=== PATIENT | female | born 1995 | race Two or more races ===

== ENCOUNTER 2023-08-02 00:05 | Inpatient (IN) | payer MEDICAID ==
[2023-08-02] MEDS ORDERED: Lidocaine 1% 50 ML MDV INJECT PRN (19:05)
[2023-08-02] MEDS ORDERED: Nalbuphine HCl 10 MG/ 1ML Amp IVPUSH PRN (19:05)
[2023-08-02] MEDS ORDERED: Ondansetron 4 MG/2 ML SDV IVPUSH PRN (19:05)
[2023-08-02] MEDS ORDERED: Misoprostol 25 MCG (1/4 of 100 MCG) Tab VAG ONE (19:12)
[2023-08-02] MEDS ORDERED: Oxytocin/Lactated Ringers 10 UNIT/1,000 ML BAG IV SCH ×2 (19:15)
[2023-08-02 19:40] LABS: BASOPHILS PERCENT AUTO 0.3 % (0.0-1.0); EOSINOPHILS PERCENT AUTO 0.3 % (0.0-6.0); HEMATOCRIT 34.9 % (37.0-47.0); HEMOGLOBIN 11.6 gm/dl (12.0-16.0); IMMATURE GRAN ABSOLUTE AUTO 0.03 K/mm3 (0.00-0.05); IMMATURE GRAN PERCENT AUTO 0.3 % (0.0-0.4); LYMPHOCYTES ABSOLUTE AUTO 2.1 K/mm3 (1.0-4.8); MEAN CORPUSCULAR HEMOGLOBIN 28.6 pg (28.0-32.0); MEAN CORPUSCULAR HGB CONC 33.2 g/dl (32.0-36.0); MEAN CORPUSCULAR VOLUME 86.2 fl (83.0-99.0); MEAN PLATELET VOLUME 10.3 fl (9.4-12.3); MONOCYTES ABSOLUTE AUTO 0.8 K/mm3 (0.0-0.8); MONOCYTES PERCENT AUTO 6.7 % (0.0-8.0); NEUTROPHILS ABSOLUTE AUTO 8.5 K/mm3 (1.8-7.7); NEUTROPHILS PERCENT AUTO 74.4 % (41.0-71.0); PLATELET COUNT,PLT 253 K/mm3 (150-400); RED BLOOD CELL COUNT 4.05 M/mm3 (4.10-5.30); WHITE BLOOD CELL COUNT,WBC 11.42 K/mm3 (3.9-11.3)
[2023-08-02] MEDS ORDERED: Misoprostol 25 MCG (1/4 of 100 MCG) Tab PO PRN (20:21)
[2023-08-02] MEDS: Lactated Ringers 1,000 ML IV SCH ×2 (22:36→23:39)
[2023-08-03] MEDS ORDERED: Metoclopramide 10 MG/2 ML SDV ONE
[2023-08-03] MEDS ORDERED: Ampicillin 2 GM in Sodium Chloride 0.9% 100 ML IV ONE ×2
[2023-08-03] MEDS ORDERED: Citric Acid/Sodium Citrate Solution 30 ML Cup ONE
[2023-08-03] MEDS ORDERED: Azithromycin 500 MG Vial ONE (00:01)
[2023-08-03] MEDS ORDERED: Sodium Chloride 0.9% 250 ML ONE (00:03)
[2023-08-03] MEDS ORDERED: Azithromycin 500 MG in Sodium Chloride 0.9% 250 ML IV ONE (00:10)
[2023-08-03] MEDS ORDERED: ceFAZolin 2 GM in Sodium Chloride 0.9% 50 ML IV ONE (00:10)
[2023-08-03] MEDS ORDERED: Bupivacaine 0.5% 30 ML SDV ONE (00:18)
[2023-08-03] MEDS ORDERED: diphenhydrAMINE 50 MG/ML SDV IVPUSH PRN (01:08)
[2023-08-03] MEDS ORDERED: Ondansetron 4 MG/2 ML SDV IVPUSH PRN (01:08)
[2023-08-03] MEDS ORDERED: Meperidine 50 MG/ML Vial IVPUSH PRN (01:08)
[2023-08-03] MEDS ORDERED: fentaNYL 100 MCG/2 ML SDV IVPUSH PRN (01:08)
[2023-08-03] MEDS ORDERED: Acetaminophen/oxyCODONE 325-5 MG Tab PO PRN (01:15)
[2023-08-03] MEDS ORDERED: Dextrose 5%-Lactated Ringers 1,000 ML IV SCH (01:15)
[2023-08-03] MEDS ORDERED: Citric Acid/Sodium Citrate Solution 30 ML Cup PO ONE (02:30)
[2023-08-03] MEDS ORDERED: Lactated Ringers 1,000 ML IV SCH (02:30)
[2023-08-03] MEDS ORDERED: Sodium Chloride 0.9% 10 ML Syringe FLUSH PRN (02:30)
[2023-08-03] MEDS ORDERED: Metoclopramide 10 MG/2 ML SDV IVPUSH ONE (02:30)
[2023-08-03] MEDS ORDERED: Ampicillin 1 GM in Sodium Chloride 0.9% 100 ML IV SCH (04:00)
[2023-08-03] MEDS: Ketorolac 30 MG/ML SDV IVPUSH PRN ×2 (08:12→15:45)
[2023-08-03] MEDS ORDERED: Sodium Chloride 0.9% 10 ML Syringe FLUSH SCH (09:00)
[2023-08-04] MEDS ORDERED: Ondansetron 4 MG/2 ML SDV ONE (00:30)
[2023-08-04] MEDS ORDERED: Meperidine 50 MG/ML Vial ONE (00:30)
[2023-08-04] MEDS ORDERED: ceFAZolin 2 GM Vial ONE (00:30)
[2023-08-04] MEDS ORDERED: Phenylephrine 1% 10 MG/ML SDV ONE (00:30)
[2023-08-04] MEDS ORDERED: Oxytocin 10 Units/1 ML SDV ONE (00:30)
== END 2023-08-05 10:55 | disposition home or self-care (01) | DRG 788 ==
LOC: JD.OB 00:05 → OBSVTOIN 08-03 00:05 → JD.OB 08-03 00:44
PROVIDERS: ADMIT Obstetrics & Gynecology; ATTEND Obstetrics & Gynecology
PROC: 10D00Z1 Extraction of Products of Conception, Low, Open Approach (ICD-10-PCS; principal; 2023-08-03)
PROC: 3E0334Z Introduction of Serum, Toxoid and Vaccine into Peripheral Vein, Percutaneous Approach (ICD-10-PCS; 2023-08-03)
DX: O48.0 Post-term pregnancy (principal); O26.893 Other specified pregnancy related conditions, third trimester; O99.824 Streptococcus B carrier state complicating childbirth; O76 Abnormality in fetal heart rate and rhythm complicating labor and delivery; Z37.0 Single live birth; Z3A.40 40 weeks gestation of pregnancy; Z67.11 Type A blood, Rh negative
CPT/HCPCS: 01961; 36415; 51702; 59025; 85025; 85461; 86592; 86850; 86870; 86900; 86901; 94762; 99140; A9270-GY; J0290; J0456; J0690; J1885; J2175; J2371; J2405; J2590; J2765; J2790; J3490; J7050; J7120; J7121